=== PATIENT | female | born 1985 | race Caucasian/White ===

== ENCOUNTER 2018-04-12 12:45 | Emergency (ER) | payer MEDICAID ==
[2013-12-12 11:16] VITALS: Wt 81.6 kg
[~2018-04-12 12:45] MED LIST: ACET-1718 PO; IBUP800T37 PO; LOR5/325 PO; PREN1TAB PO
--- NOTE | 2018-04-12 12:56 | ER Report ---
History and Physical Time Seen By MD: 12:55 Hx. of Stated Complaint: pt presents with recent hx of facial paralysis and numbness since . states is sound sensitive as she has pain in r occipital head HPI/ROS CHIEF COMPLAINT: Right-sided facial numbness and paralysis HISTORY OF PRESENT ILLNESS: 32-year-old female patient presents to emergency room with complaint of right-sided facial numbness or paralysis. Patient states this started on . She states that she's not been able to close her right eye without forcing it close using her hand and has noticed that when she eats she does have drainage out of the corner of her mouth. She denies having any fevers, chills, nausea, vomiting or diarrhea. Patient states she does get some goosebumps on the right side of her body. Patient denies having any weakness to the right arm or right leg. She states she has not taken any medication for this. She was initially very embarrassed about was going on. When she went to see her grandmother today her grandmother said that she be checked out and brought her to the emergency room. Patient states she has had some headache, as well as intermittent numbness and tingling to the left arm. REVIEW OF SYSTEMS: Respiratory: No cough, no dyspnea. Cardiovascular: No chest pain, no palpitations. Gastrointestinal: No vomiting, no abdominal pain. Musculoskeletal: No back pain. Allergies: Coded Allergies: No Known Drug Allergies (Unverified , 04/12/18) Home Meds Active Scripts Prednisone (PREDNISONE) 20 Mg Tablet, 80 MG PO DAILY, #28 TAB Prov:JHOAN QUINONES 04/12/18 Valacyclovir Hcl (VALTREX) 1,000 Mg Tablet, 1000 MG PO TID, #21 TAB Prov:JHOAN QUINONES 04/12/18 Discontinued Reported Medications Vit#42/Fa Cmb#6 (PRENA1 CHEW TABLET) 1 Mg Tab.chew, 1 MG PO DAILY, TAB.CHEW 06/19/13 Discontinued Scripts Ibuprofen (IBUPROFEN) 800 Mg Tablet, 1 TAB PO Q8H for PAIN, #40 TAB 0 Refills Prov:DAREN DUONG MD 12/12/13 Acetaminophen With Codeine # 3 (ACETAMINOPHEN-COD #3 TABLET) 1 Each Tablet, 1-2 EACH PO Q4D PRN for PAIN, #30 TAB 0 Refills Prov:RHODADAREN MD 12/12/13 Past Medical/Surgical History Patient has a past medical history of migraines, right hand pain, lupus, meth abuse. Patient denies any pertinent surgical history. Reviewed Nurses Notes: Yes Hx Smoking: Yes Smoking Status: Current: Every Day Smoker Exposure to Second Hand Smoke?: Yes Hx Substance Use Disorder: No Hx Alcohol Use: Yes Constitutional Vital Sign - Last 24 Hours 04/12/18 04/12/18 04/12/18 04/12/18 12:45 12:50 12:51 13:00 Temp 98.3 Pulse ??? 86 Resp 20 B/P (MAP) 123/77 123/77 (92) 121/86 (98) Pulse Ox 95 O2 Delivery Room Air 04/12/18 04/12/18 04/12/18 13:15 13:45 14:00 Pulse 91 85 B/P (MAP) 96/59 (71) Pulse Ox 92 92 Physical Exam General Appearance: The patient is alert, has no immediate need for airway protection and no current signs of toxicity. Eyes: Pupils equal and round no injection. Extraocular movements intact. Respiratory: Chest is non tender, lungs are clear to auscultation. Cardiac: regular rate and rhythm Gastrointestinal: Abdomen is soft and non tender, no masses, bowel sounds normal. Musculoskeletal: Neck: Neck is supple and non tender. Extremities have full range of motion and are non tender. Skin: No rashes or lesions. Neuro: Patient is alert and oriented 4, cranial nerves II through and VIII through XII are intact. DIFFERENTIAL DIAGNOSIS: After history and physical exam differential diagnosis was considered for Ansari's palsy, stroke, trigeminal neuralgia. Medical Decision Making Data Points Result Diagram: 04/12/18 1321 04/12/18 1321 Laboratory Hematology Test 04/12/18 13:21 Red Blood Count 5.12 M/uL (4.17-5.56) Mean Corpuscular Volume 91.1 fL (80.0-96.0) Mean Corpuscular Hemoglobin 30.2 pg (26.0-33.0) Mean Corpuscular Hemoglobin Concent 33.2 g/dL (32.0-36.0) Red Cell Distribution Width 13.1 % (11.5-14.5) Mean Platelet Volume 7.4 fL (7.2-11.1) Neutrophils (%) (Auto) 65.8 % (39.4-72.5) Lymphocytes (%) (Auto) 26.9 % (17.6-49.6) Monocytes (%) (Auto) 4.6 % (4.1-12.4) Eosinophils (%) (Auto) 1.9 % (0.4-6.7) Basophils (%) (Auto) 0.8 % (0.3-1.4) Nucleated RBC Relative Count (auto) 0.0 /100WBC Neutrophils # (Auto) 4.9 K/uL (2.0-7.4) Lymphocytes # (Auto) 2.0 K/uL (1.3-3.6) Monocytes # (Auto) 0.3 K/uL (0.3-1.0) Eosinophils # (Auto) 0.1 K/uL (0.0-0.5) Basophils # (Auto) 0.1 K/uL (0.0-0.1) Nucleated RBC Absolute Count (auto) 0.00 K/uL Sodium Level 141 mmol/L (137-145) Potassium Level 3.5 mmol/L (3.5-5.0) Chloride Level 108 mmol/L (98-107) Carbon Dioxide Level 25 mmol/L (22-31) Blood Urea Nitrogen 10 mg/dl (7-18) Creatinine 0.80 mg/dl (0.52-1.04) Glomerular Filtration Rate Calc > 60.0 Random Glucose 122 mg/dl (75-110) Calcium Level 8.9 mg/dl (8.4-10.2) Total Bilirubin 0.6 mg/dl (0.2-1.3) Aspartate Amino Transf (AST/SGOT) 29 U/L (0-35) Alanine Aminotransferase (ALT/SGPT) 17 U/L (0-56) Alkaline Phosphatase 59 U/L (0-126) C-Reactive Protein 0.8 mg/dl (<1.0) Total Protein 6.8 g/dl (6.3-8.2) Albumin 4.0 g/dl (3.5-5.0) Chemistry Test 04/12/18 13:21 White Blood Count 7.5 k/uL (4.5-11.0) Red Blood Count 5.12 M/uL (4.17-5.56) Hemoglobin 15.5 g/dL (12.0-16.0) Hematocrit 46.7 % (34.0-47.0) Mean Corpuscular Volume 91.1 fL (80.0-96.0) Mean Corpuscular Hemoglobin 30.2 pg (26.0-33.0) Mean Corpuscular Hemoglobin Concent 33.2 g/dL (32.0-36.0) Red Cell Distribution Width 13.1 % (11.5-14.5) Platelet Count 346 K/uL (150-450) Mean Platelet Volume 7.4 fL (7.2-11.1) Neutrophils (%) (Auto) 65.8 % (39.4-72.5) Lymphocytes (%) (Auto) 26.9 % (17.6-49.6) Monocytes (%) (Auto) 4.6 % (4.1-12.4) Eosinophils (%) (Auto) 1.9 % (0.4-6.7) Basophils (%) (Auto) 0.8 % (0.3-1.4) Nucleated RBC Relative Count (auto) 0.0 /100WBC Neutrophils # (Auto) 4.9 K/uL (2.0-7.4) Lymphocytes # (Auto) 2.0 K/uL (1.3-3.6) Monocytes # (Auto) 0.3 K/uL (0.3-1.0) Eosinophils # (Auto) 0.1 K/uL (0.0-0.5) Basophils # (Auto) 0.1 K/uL (0.0-0.1) Nucleated RBC Absolute Count (auto) 0.00 K/uL Glomerular Filtration Rate Calc > 60.0 Calcium Level 8.9 mg/dl (8.4-10.2) Total Bilirubin 0.6 mg/dl (0.2-1.3) Aspartate Amino Transf (AST/SGOT) 29 U/L (0-35) Alanine Aminotransferase (ALT/SGPT) 17 U/L (0-56) Alkaline Phosphatase 59 U/L (0-126) C-Reactive Protein 0.8 mg/dl (<1.0) Total Protein 6.8 g/dl (6.3-8.2) Albumin 4.0 g/dl (3.5-5.0) EKG/Imaging Imaging EXAMINATION: CT HEAD WITHOUT CONTRAST COMPARISON: None available HISTORY: facial weakness PROCEDURE: Noncontrast CT from the vertex through the skull base. One of the following dose optimization techniques was utilized in the performance of this exam: Automated exposure control; adjustment of the mA and/or kV according to the patient's size; or use of an iterative reconstruction technique. Specific details can be referenced in the facility's radiology CT exam operational p [email or web address]. FINDINGS: Brain volume: Age-appropriate. Hemorrhage/extra-axial fluid: None. Mass effect/midline shift/edema: None. Ischemia: Deluca-white differentiation is preserved. Ventricles and basal cisterns: Within normal limits. Posterior fossa: Negative. Vessels: Negative. Calvarium, skull base, and scalp: Negative. Visualized sinuses and orbits: Small amount of inflammatory fluid in the right sphenoid sinus. Otherwise negative. IMPRESSION: Small amount of inflammatory fluid in the right sphenoid sinus. Otherwise negative head CT. Report Dictated By: Victor Manuel Mckeon MD at 04/12/2018 1:45 PM Report E-Signed By: Victor Manuel Mckeon MD at 04/12/2018 1:50 PM ED Course/Re-evaluation ED Course Patient submitted exam room, history and physical were obtained. Differential diagnoses were considered. On examination lungs were clear, heart is regular, abdomen soft nontender. Neurologically cranial nerves II through and 8 through [address] scan of the head was done, a CBC, CMP were done. Lab results were unremarkable and the CT scan of the head was negative. I discussed the findings with the patient. While she has a Ansari's palsy. We'll go ahead and treat her with Valtrex 1 g 3 times a day 7 days as well as prednisone 80 mg daily for 7 days. Patient is to follow-up with her primary care provider. She is return to emergency room if condition worsens. Patient verbalized understanding and agreement with plan. Decision to Disposition Date: Apr 12, 2018 Decision to Disposition Time: 13:58 Depart Departure Latest Vital Signs Vital Signs Date Time Temp Pulse Resp B/P (MAP) Pulse Ox O2 Delivery O2 Flow Rate FiO2 04/12/18 14:00 96/59 (71) 04/12/18 13:45 85 92 04/12/18 12:50 98.3 20 Room Air Impression: Primary Impression: Ansari's palsy Condition: Improved Disposition: HOME OR SELF-CARE Referrals: RICHIE BEVERLY MD (PCP) New Scripts Prednisone (PREDNISONE) 20 Mg Tablet 80 MG PO DAILY, #28 TAB Prov: JHOAN QUINONES 04/12/18 Valacyclovir Hcl (VALTREX) 1,000 Mg Tablet 1000 MG PO TID, #21 TAB Prov: JHOAN QUINONES 04/12/18 Patient Instructions: Ansari Palsy (ED) Additional Instructions: Get plenty of rest. Wear the patch at night. Follow up with your primary care provider in the next week. Return to the ER if condition worsens. Take medications as prescribed. JHOAN QUINONES Apr 12, 2018 12:56
[2018-04-12 13:26] LABS: PLATELET COUNT, AUTOMATED 346 K/uL (150-450)
--- NOTE | 2018-04-12 13:53 | RADIOLOGY IMAGING REPORT ---
FACILITY: [facility] PATIENT NAME: Sweta Iryb : 1985 MR: [id number] V: [id number] EXAM DATE: ORDERING PHYSICIAN: JHOAN QUINONES TECHNOLOGIST: Location: [facility] - [place] Patient: Sweta Irby : 1985 Visit/Account:[id number] Date of Sevice: 04/12/2018 EXAMINATION: CT HEAD WITHOUT CONTRAST COMPARISON: None available HISTORY: facial weakness PROCEDURE: Noncontrast CT from the vertex through the skull base. One of the following dose optimizat ion techniques was utilized in the performance of this exam: Automated exposure control; adjustment o f the mA and/or kV according to the patient's size; or use of an iterative reconstruction technique. Specific details can be referenced in the facility's radiology CT exam operational policy. FINDINGS: Brain volume: Age-appropriate. Hemorrhage/extra-axial fluid: None. Mass effect/midline shift/edema: None. Ischemia: Deluca-white differentiation is preserved. Ventricles and basal cisterns: Within normal limits. Posterior fossa: Negative. Vessels: Negative. Calvarium, skull base, and scalp: Negative. Visualized sinuses and orbits: Small amount of inflammatory fluid in the right sphenoid sinus. Other mccabe negative. IMPRESSION: Small amount of inflammatory fluid in the right sphenoid sinus. Otherwise negative head CT. Report Dictated By: Victor Manuel Mckeon MD at 04/12/2018 1:45 PM Report E-Signed By: Victor Manuel Mckeon MD at 04/12/2018 1:50 PM WSN:[email or web address]
[2018-04-12 14:00] VITALS: BP 96/59
[2018-04-12] MEDS ORDERED: PRED20TA6 PO (14:01)
[2018-04-12] MEDS ORDERED: VALA100062 PO (14:01)
== END 2018-04-12 14:13 | disposition home or self-care (01) ==
LOC: ER 12:45
DX: G51.0 Bell's palsy (principal)
CPT/HCPCS: 36415; 70450; 82040; 82247; 82310; 82374; 82435; 82565; 82947; 84075; 84132; 84155; 84295; 84450; 84460; 84520; 85025; 86140; 99284